=== PATIENT | female | born 1940 | race Hispanic/Latino ===

== ENCOUNTER 2017-05-08 07:05 | Day surgery (SDC) | payer MEDICARE, BC ==
--- NOTE | 2017-05-08 08:55 | CP.SDSHP ---
Same Day Surgery H & P - History Proposed Procedure: colonoscopy Pre-Op Diagnosis: positive Cologard test results - Previous Medical/Surgical History Cardiac: Hypertension, Other (hyperlipidemia, hydronephrosis, ) Endocrine/Metabolic: Thyroid Disease, Diabetes, Obesity, Other (Paget's disease , ) Misc: Other (Chronic renal disease Stage 4) Previous Surgical History: PEDRO/BSO. Appendectomy. Breast biopsy - Allergies Allergies: Allergies No Known Allergies Allergy (Verified 05/07/17 14:31) - Physical Exam General Appearance: Morbidly obese Vital Signs: Vital Signs 05/08/17 07:50 Temperature 97.3 F L Pulse Rate 80 Respiratory 20 Rate Blood Pressure 124/65 O2 Sat by Pulse 97 Oximetry Mental Status: Alert & Oriented x3 Neuro: WNL Heart: WNL Lungs: WNL GI: WNL - Impression Impression: Positive Cologard test results Pt. Evaluated Today:Candidate for Anesthesia & Procedure: Yes - Date & Time Date: 05/08/17 Time: 08:55 Short Stay Discharge - Short Stay Discharge Admitting Diagnosis/Reason for Visit: OTHER FECAL ABNORMALITIES Disposition: HOME/ ROUTINE
[2017-05-08] MEDS ORDERED: Propofol 10 mg/ml Inj (20 ML) ONE ×2 (08:58→09:12)
[2017-05-08] MEDS ORDERED: Midazolam 2 MG/2 ML VIAL ONE (09:11)
[2017-05-08 10:27] VITALS: TEMP 96.6
[2017-05-08 12:10] VITALS: BP 138/55; PULSE 82; RESP 19; O2SAT 96
== END 2017-05-08 13:20 | disposition home or self-care (01) ==
LOC: C.ENDO 07:05
PROVIDERS: ATTEND Internal Medicine Gastroenterology
DX: D12.2 Benign neoplasm of ascending colon (principal); D12.7 Benign neoplasm of rectosigmoid junction; R19.5 Other fecal abnormalities; E66.01 Morbid (severe) obesity due to excess calories; I10 Essential (primary) hypertension; D12.4 Benign neoplasm of descending colon; D12.5 Benign neoplasm of sigmoid colon; K57.30 Diverticulosis of large intestine without perforation or abscess without bleeding; E11.22 Type 2 diabetes mellitus with diabetic chronic kidney disease; E78.5 Hyperlipidemia, unspecified; E66.9 Obesity, unspecified; I12.9 Hypertensive chronic kidney disease with stage 1 through stage 4 chronic kidney disease, or unspecified chronic kidney disease; N18.4 Chronic kidney disease, stage 4 (severe)
CPT/HCPCS: 45380; 45385; 82948; 88305; J2001; J2250; J2704